=== PATIENT | male | born 1995 | race African-American/Black ===

== ENCOUNTER 2019-02-01 14:45 | Emergency (ER) | payer OTHER ==
[~2019-02-01] VITALS: Ht 182.9 cm; Wt 68.0 kg
[~2019-02-01 14:45] MED LIST: HYDR-3164 PO; PROM25TA10 PO
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
[2019-02-01 15:09] VITALS: BP 119/75
--- NOTE | 2019-02-01 15:42 | RAD ---
HAND RIGHT 3V History: Pain after an injury. No evidence of an acute fracture. No aggressive bone destruction. Joint spaces and alignment are intact. No significant soft tissue abnormality. IMPRESSION: No evidence of acute fracture or dislocation. Electronically signed by: Galen Boyle MD (02/01/2019 3:39 PM) [facility]
[2019-02-01] MEDS ORDERED: HYDR-3164 PO (15:55)
== END 2019-02-01 16:08 | disposition home or self-care (01) ==
LOC: ER 14:45
DX: S63.656A Sprain of metacarpophalangeal joint of right little finger, initial encounter (principal); S63.654A Sprain of metacarpophalangeal joint of right ring finger, initial encounter; S60.511A Abrasion of right hand, initial encounter; S10.91XA Abrasion of unspecified part of neck, initial encounter; S00.81XA Abrasion of other part of head, initial encounter; Z98.890 Other specified postprocedural states; Y08.89XA Assault by other specified means, initial encounter; Y93.89 Activity, other specified; Y92.89 Other specified places as the place of occurrence of the external cause; Y99.8 Other external cause status
CPT/HCPCS: 29125; 73130; 99284

== ENCOUNTER 2021-06-09 13:14 | Inpatient (IN) | payer SELFPAY ==
[~2021-06-09] VITALS: Ht 180.3 cm; Wt 67.8 kg
[2021-06-09 13:59] LABS: BASO # 0.1 x10^3/uL (0.0-0.2); BASO % 1 % (0-3); EOS # 0.1 x10^3/uL (0.0-0.7); EOS % 1 % (0-3); HEMATOCRIT 43.9 % (39.0-53.0); LYMPH # 1.1 x10^3/uL (1.0-4.8); LYMPH % 9 % (24-48); MEAN CORPUSCULAR HEMOGLOBIN 30 pg (25-35); MEAN CORPUSCULAR HGB CONC 34 g/dL (31-37); MEAN CORPUSCULAR VOLUME 89 fL (79-100); MONO # 0.9 x10^3/uL (0.0-1.1); MONO % 8 % (0-9); NEUT # 9.3 x10^3/uL (1.8-7.7); NEUT % 82 % (31-73); PLATELET COUNT 284 x10^3/uL (140-400); RED BLOOD COUNT 4.97 x10^6/uL (4.30-5.70); RED CELL DISTRIBUTION WIDTH 13.7 % (11.5-14.5); WHITE BLOOD COUNT 11.3 x10^3/uL (4.0-11.0)
[2021-06-09] MEDS ORDERED: ONDANSETRON PF 4 MG/2 ML VIAL. IVP ONE ×2 (14:00→15:15)
[2021-06-09] MEDS ORDERED: IV NORMAL SALINE 1000ML BAG 1,000 ML IV ONE ×2 (14:00→15:30)
[2021-06-09] MEDS ORDERED: MORPHINE SULFATE 4 MG/ML INJ. IVP ONE ×2 (14:00→15:15)
[2021-06-09 14:15] LABS: CALCIUM 9.7 mg/dL (8.5-10.1); CREATININE 1.2 mg/dL (0.7-1.3); GFR 89.3; POTASSIUM 3.8 mmol/L (3.5-5.1)
[2021-06-09 14:18] LABS: ALBUMIN 4.4 g/dL (3.4-5.0); TOTAL BILIRUBIN 1.1 mg/dL (0.2-1.0); TOTAL PROTEIN 8.6 g/dL (6.4-8.2)
[2021-06-09] MEDS ORDERED: CONTRAST GIVEN. MC PRN (14:30)
[2021-06-09] MEDS ORDERED: IOHEXOL 300 MG/ML 100ML VIAL. IV ONE (14:30)
--- NOTE | 2021-06-09 14:58 | RAD ---
Axial CT of the abdomen and pelvis were obtained after the administration of 75 cc Omnipaque 300. Ora l contrast was also administered. Coronal and sagittal reformats are also available. Indication: Right lower quadrant pain with rebound tenderness. Comparison: 12/27/2015. Findings: Lung bases are clear. The heart is unenlarged. Liver, gallbladder, spleen, adrenals kidneys are unremarkable in appearance. Pancreas is difficult to evaluate without oral contrast due to the patient's thin body habitus. The stomach, small and large bowel are nondistended. The appendix is dilated up to 12 mm. There is a small amount of periappendiceal fluid identified. Minimal inflammation is identified. No free air. Ab dominal aorta is nonaneurysmal. Portal, superior mesenteric and splenic veins are normal in appearanc e. Bony structures are unremarkable in appearance. Urinary bladder is nondistended. IMPRESSION: 1. Findings suggest early or mild appendicitis with dilation of the appendix and periappendiceal flui d without significant inflammation. Exposure: One or more of the following individualized dose reduction techniques were utilized for thi s examination: 1. Automated exposure control 2. Adjustment of the mA and/or kV according to patient size 3. Use of iterative reconstruction technique Electronically signed by: Santana Srivastava MD (06/09/2021 2:55 PM) [facility]
--- NOTE | 2021-06-09 15:12 | EKG ---
[facility] [address] [place] [address] Test Date: 2021-06-09 Test Time: 13:36:16 Pat Name: ROBBI BYRD Department: Room: Gender: M Associate Project Manager: : 1995 Requested By: MARITZA YOST Order Number: [id number] Reading MD: Jose Daniel Collins MD Measurements Intervals Metcalfe Rate: 65 P: 64 CT: 160 QRS: 14 QRSD: 100 T: 49 QT: 378 QTc: 394 Interpretive Statements SINUS RHYTHM Electronically Signed On 06-13-2021 9:04:22 CDT by Jose Daniel Collins MD
[2021-06-09] MEDS ORDERED: PIP/TAZO PER PHARMACY MC PRN (15:15)
[2021-06-09] MEDS: PIPERACILLIN/TAZOBACTAM 3.375 GM in IV NORMAL SALINE 50ML 50 ML IV SCH (15:25)
--- NOTE | 2021-06-09 15:28 | PHYS DOC ---
Past Medical History Past Medical History: No Pertinent History Past Surgical History: No Surgical History Additional Past Surgical Histo: LEFT ARM SURGERY Smoking Status: Current Every Day Smoker Alcohol Use: None Drug Use: None General Adult EDM: Chief Complaint: ABDOMINAL PAIN HPI: HPI: Patient is a 25-year-old male who presents to the emergency department complaining of a slow onset of intermittent right upper and lower abdominal pain that started approximately 22:30 yesterday while he was working at [employer]. Patient reports he was unable to sleep and noticed his pain became constant approximately 3 hours prior to arrival to the emergency department. Patient als o complains of intermittent waves of nausea and vomiting clear vomitus mixed with "bile ". Patient reports a 10 out of 10 pain at this time. Patient reports having a normal bowel movement this morning. Denies seeing blood in his vomitus or in his stool. Denies fever or chills. Denies chest pains. Patient denies abdominal surgical history. Does not take prescription medications at home. Does not have a primary care physician. Review of Systems: Review of Systems: 14 body systems of review of systems have been reviewed. See HPI for pertinent positives and negative responses, otherwise all other systems are negative, nonpertinent or noncontributory. Constitutional: Negative except as outlined in HPI above. Skin: Negative except as outlined in HPI above. Eyes: Negative except as outlined in HPI above. HENT: Negative except as outlined in HPI above. Respiratory: Negative except as outlined in HPI above. Cardiovascular: Negative except as outlined in HPI above. GI: Negative except as outlined in HPI above. : Negative except as outlined in HPI above. Musculoskeletal: Negative except as outlined in HPI above. Integument: Negative except as outlined in HPI above. Neurologic: Negative except as outlined in HPI above. Endocrine: Negative except as outlined in HPI above. Lymphatic: Negative except as outlined in HPI above. Psychiatric: Negative except as outlined in HPI above. Heart Score: C/O Chest Pain: No Risk Factors: Risk Factors: DM, Current or recent (<one month) smoker, HTN, HLP, family history of CAD, obesity. Risk Scores: Score 0 - 3: 2.5% MACE over next 6 weeks - Discharge Home Score 4 - 6: 20.3% MACE over next 6 weeks - Admit for Clinical Observation Score 7 - 10: 72.7% MACE over next 6 weeks - Early Invasive Strategies Current Medications: Current Medications Medications (Trade) Dose Ordered Sig/Irais Start Time Stop Time Status Last Admin Dose Admin Info (CONTRAST GIVEN -- Rx MONITORING) 1 each PRN DAILY PRN 06/09/21 14:30 06/11/21 14:29 Iohexol (Omnipaque 300 Mg/ml) 75 ml 1X ONCE 06/09/21 14:30 06/09/21 14:31 DC 06/09/21 14:34 75 ML Morphine Sulfate (Morphine Sulfate) 4 mg 1X ONCE 06/09/21 14:00 06/09/21 14:01 DC 06/09/21 14:07 4 MG Ondansetron HCl (Zofran) 4 mg 1X ONCE 06/09/21 14:00 06/09/21 14:01 DC 06/09/21 14:06 4 MG Sodium Chloride 1,000 ml @ 1,000 mls/hr 1X ONCE 06/09/21 14:00 06/09/21 14:59 DC 06/09/21 14:05 1,000 MLS/HR Allergies: Allergies: Allergies Coded Allergies Type Severity Reaction Last Updated Verified No Known Drug Allergies 12/27/15 No Physical Exam: PE: C constitutional: Well developed, well nourished, nontoxic in appearance, lying in left lateral recumbent position guarding abdomen. HENT: Normocephalic, atraumatic. Eyes: Conjunctiva normal, no discharge. Neck: Normal range of motion, no stridor. Cardiovascular: No cyanosis appreciated, distal cap refill less than 2 seconds. Lungs & Thorax: Patient is in no respiratory distress, no audible adventitious lung sounds appreciated. Abdomen: Abdomen is flat, no skin discoloration appreciated, hypersensitivity to light palpation to right upper and right lower quadrant, positive McBurney's point tenderness, there is rebound tenderness appreciated, negative Trinidad sign. Skin: Warm, dry, no erythema, no rash. Back: No tenderness, no deformities. Extremities: No tenderness, no cyanosis, no clubbing, ROM intact, no edema. Neurologic: Alert and oriented X 3, normal motor function, normal sensory function, no focal deficits noted. Psychologic: Affect normal, judgement normal, mood normal. Current Patient Data: Labs: Laboratory Tests Test 06/09/21 13:28 06/09/21 14:04 White Blood Count 11.3 x10^3/uL (4.0-11.0) H Red Blood Count 4.97 x10^6/uL (4.30-5.70) Hemoglobin 15.0 g/dL (13.0-17.5) Hematocrit 43.9 % (39.0-53.0) Mean Corpuscular Volume 89 fL (79-100) Mean Corpuscular Hemoglobin 30 pg (25-35) Mean Corpuscular Hemoglobin Concent 34 g/dL (31-37) Red Cell Distribution Width 13.7 % (11.5-14.5) Platelet Count 284 x10^3/uL (140-400) Neutrophils (%) (Auto) 82 % (31-73) H Lymphocytes (%) (Auto) 9 % (24-48) L Monocytes (%) (Auto) 8 % (0-9) Eosinophils (%) (Auto) 1 % (0-3) Basophils (%) (Auto) 1 % (0-3) Neutrophils # (Auto) 9.3 x10^3/uL (1.8-7.7) H Lymphocytes # (Auto) 1.1 x10^3/uL (1.0-4.8) Monocytes # (Auto) 0.9 x10^3/uL (0.0-1.1) Eosinophils # (Auto) 0.1 x10^3/uL (0.0-0.7) Basophils # (Auto) 0.1 x10^3/uL (0.0-0.2) Sodium Level 138 mmol/L (136-145) Potassium Level 3.8 mmol/L (3.5-5.1) Chloride Level 102 mmol/L (98-107) Carbon Dioxide Level 29 mmol/L (21-32) Anion Gap 7 (6-14) Blood Urea Nitrogen 10 mg/dL (8-26) Creatinine 1.2 mg/dL (0.7-1.3) Estimated GFR (Cockcroft-Gault) 89.3 BUN/Creatinine Ratio 8 (6-20) Glucose Level 86 mg/dL (70-99) Calcium Level 9.7 mg/dL (8.5-10.1) Total Bilirubin 1.1 mg/dL (0.2-1.0) H Aspartate Amino Transferase (AST) 16 U/L (15-37) Alanine Aminotransferase (ALT) 20 U/L (16-63) Alkaline Phosphatase 67 U/L (46-116) Troponin I High Sensitivity 5 ng/L (4-75) Total Protein 8.6 g/dL (6.4-8.2) H Albumin 4.4 g/dL (3.4-5.0) Albumin/Globulin Ratio 1.0 (1.0-1.7) Lipase 251 U/L (73-393) Lactic Acid Level 1.4 mmol/L (0.4-2.0) Laboratory Tests 06/09/21 13:28 Laboratory Tests 06/09/21 13:28 Vital Signs: Vital Signs Date Time Temp Pulse Resp B/P (MAP) Pulse Ox O2 Delivery O2 Flow Rate FiO2 06/09/21 14:07 20 100 Room Air 06/09/21 13:15 97.9 71 115/76 (89) 97.9 EKG: EKG: EKG performed at 1336 by ED nursing staff shows a normal sinus rhythm without other ectopy, her rate is 65 bpm, NE interval point 160, QTc interval 0.394, no acute STEMI, no ACS, no acute ischemia appreciated, it was noted by ED attending physician during interpretation and elevation in V2 and V3, most likely early repolarization. Radiology/Procedures: Radiology/Procedures: REASON: Right upper and lower quadrant pain with rebound tenderness PROCEDURE: CT ABD PELV W/ IV CONTRST ONLY Axial CT of the abdomen and pelvis were obtained after the administration of 75 cc Omnipaque 300. Oral contrast was also administered. Coronal and sagittal reformats are also available. Indication: Right lower quadrant pain with rebound tenderness. Comparison: 12/27/2015. Findings: Lung bases are clear. The heart is unenlarged. Liver, gallbladder, spleen, adrenals kidneys are unremarkable in appearance. Pancreas is difficult to evaluate without oral contrast due to the patient's thin body habitus. The stomach, small and large bowel are nondistended. The appendix is dilated up to 12 mm. There is a small amount of periappendiceal fluid identified. Minimal inflammation is identified. No free air. Abdominal aorta is nonaneurysmal. Portal, superior mesenteric and splenic veins are normal in appearance. Bony structures are unremarkable in appearance. Urinary bladder is nondistended. IMPRESSION: 1. Findings suggest early or mild appendicitis with dilation of the appendix and periappendiceal fluid without significant inflammation. Exposure: One or more of the following individualized dose reduction techniques were utilized for this examination: 1. Automated exposure control 2. Adjustment of the mA and/or kV according to patient size 3. Use of iterative reconstruction technique Electronically signed by: Santana Srivastava MD (06/09/2021 2:55 PM) [facility] Course & Med Decision Making: Course & Med Decision Making Pertinent Labs and Imaging studies reviewed. (See chart for details) 25-year-old male, vital signs reviewed, presents to the emergency department concerning right upper and lower abdominal pain since yesterday. Patient's physical examination is concerning for appendicitis versus other acute abdominal process. Will order CBC, CMP, lactic acid, lipase, troponin I high-sensitivity, urinalysis assay, EKG twelve-lead, 1 L normal saline bolus, 4 mg morphine, [address] abdomen pelvis with IV contrast. Patient last consumed food yesterday evening approximately 1900, last consumed p.o. fluids water 8 hours prior to arrival to the emergency department. CBC with slightly elevated neutrophilia of 11.3. The CMP is unremarkable. Patient has not given a urine specimen at this time. CT abdomen pelvis concerning for acute appendicitis. Paged to Dr. Lozada general surgeon. Called and discussed patient case and ED work-up with general surgeon Dr. Lozada who agrees patient's case warrants surgical intervention, requested IV Zosyn regimen, admit to inpatient management physician Dr. Waterman, will place on OR schedule at 730 tomorrow morning. Called and discussed patient case and ED work-up with inpatient management physician Dr. Waterman who is agrees to accept admission to [facility] unit. 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 Zosyn regimen per pharmacy ordered. Dragon Disclaimer: Dragon Disclaimer: This electronic medical record was generated, in whole or in part, using a voice recognition dictation system. Departure Departure Impression: Primary Impression: Acute appendicitis Qualified Codes: K35.80 - Unspecified acute appendicitis Additional Impression: Abdominal pain Qualified Codes: R10.31 - Right lower quadrant pain Disposition: ADMITTED INPATIENT Admitting Physician: HIMS (Admit to Dr. HarbesonDr. Neville mccormick surgical consult, to [facility] unit) Condition: GUARDED Referrals: NO PCP (PCP) MARITZA YOST APRN June 09, 2021 15:28
[2021-06-09] MEDS ORDERED: ONDANSETRON PF 4 MG/2 ML VIAL. IVP PRN (15:30)
[2021-06-09 15:52] LABS: INFLUENZA A PATIENT NEGATIVE (NEGATIVE); INFLUENZA B PATIENT NEGATIVE (NEGATIVE)
[2021-06-09] MEDS: MORPHINE SULFATE 4 MG/ML INJ. IVP PRN ×2 (17:23→21:23)
[2021-06-09 17:28] LABS: BILIRUBIN,URINE NEGATIVE (NEG); CLARITY,URINE CLEAR; COLOR,URINE YELLOW; NITRITE,URINE NEGATIVE (NEG); PROTEIN,URINE NEGATIVE (NEG-TRACE); UROBILINOGEN,URINE 0.2 mg/dL (0.2 mg/dL)
[2021-06-09 17:29] LABS: BACTERIA,URINE 0 /HPF (0-FEW); RBC,URINE 0 /HPF (0-2); WBC,URINE OCC /HPF (0-4)
--- NOTE | 2021-06-09 18:39 | HP ---
DATE OF SERVICE: 06/09/2021 ADMIT DATE: 06/09/2021 CHIEF COMPLAINT: Abdominal pain. HISTORY OF PRESENT ILLNESS: The patient is a healthy 25-year-old male who presented to the ER with abdominal pain. We did a CAT scan, he has got appendicitis. I discussed the case with ER physician. The patient has been admitted. We are consulting General Surgery. He is going to surgery in the morning. PAST MEDICAL HISTORY: Left arm surgery, tobacco abuse. ALLERGIES: None. FAMILY HISTORY: Diabetes. SOCIAL HISTORY: He does smoke. No drink or drugs. MEDICATIONS: Reviewed, please refer to the MRAD. REVIEW OF SYSTEMS: GENERAL: No history of weight change, weakness or fevers. SKIN: No bruising, hair changes or rashes. EYES: No blurred, double or loss of vision. NOSE AND THROAT: No history of nosebleeds, hoarseness or sore throat. HEART: No history of palpitations, chest pain or shortness of breath on exertion. LUNGS: Denies cough, hemoptysis, wheezing or shortness of breath. GASTROINTESTINAL: He complains of abdominal pain. GENITOURINARY: No history of frequency, urgency, hesitancy or nocturia. NEUROLOGIC: Denies history of numbness, tingling, tremor or weakness. PSYCHIATRIC: No history of panic, anxiety or depression. ENDOCRINE: No history of heat or cold intolerance, polyuria or polydipsia. EXTREMITIES: Denies muscle weakness, joint pain, pain on walking or stiffness. PHYSICAL EXAMINATION: VITALS: Within normal limits and are stable. GENERAL: No apparent distress. Alert and oriented. HEENT: Normal cephalic atraumatic, external auditory canals are patent. EYES: Extraocular muscles are intact, pupils are equally round and reactive to light and accommodation. MUSCULOSKELETAL: Well developed, well nourished, good range of motion. ENDOCRINE: No thyromegaly was palpated. LYMPHATICS: No cervical chain or axillary nodes were noted. HEMATOPOIETIC: No bruising. NECK: Supple, no JVD, no thyromegaly was noted. LUNGS: Clear to auscultation in all lung hwang without rhonchi or wheezing. HEART: RRR, S1, S2 present. Peripheral pulses intact, no obvious murmurs were noted. ABDOMEN: He has decreased bowel sounds with tenderness. EXTREMITIES: Without any cyanosis, clubbing, or edema. Pedal pulses intact, Homans sign is negative. NEUROLOGIC: Normal speech, normal tone. A and O x 3, moves all extremities, no obvious focal deficits. PSYCHIATRIC: Normal affect, normal mood. Stable. SKIN: No ulcerations or rashes, good skin turgor, no jaundice. VASCULAR: Good capillary refill, neurovascular bundle appears to be intact. LABORATORY DATA: White count 11. Electrolytes are normal. CT of the abdomen shows appendicitis. ASSESSMENT AND PLAN: Appendicitis. The patient will be admitted. We will start IV antibiotics, IV fluids, p.r.n. Zofran, p.r.n. morphine, home meds. DVT prophylaxis. Full code. Consult General Surgery. He is going to surgery in the morning. BARRY/ADILIA DR: BARRY/lauro TID: [id number]
[2021-06-09 19:45] VITALS: BP 86/65
[2021-06-09] MEDS ORDERED: NICOTINE 21MG PATCH. TD PRN (20:15)
[2021-06-09 23:27] VITALS: BP 100/39
[2021-06-10] VITALS (8 sets, daily range): BP systolic 92–109; BP diastolic 52–72
[2021-06-10] MEDS: PIPERACILLIN/TAZOBACTAM 3.375 GM in IV NORMAL SALINE 50ML 50 ML IV SCH ×2 (00:53→05:47)
[2021-06-10] MEDS ORDERED: IV RINGERS,LACTATED 1000ML 1,000 ML IV SCH (06:00)
[2021-06-10] MEDS ORDERED: fentaNYL PF VIAL 100 MCG/2 ML VIAL IVP PRN ×2 (06:00)
[2021-06-10] MEDS ORDERED: HYDROmorphone 2 MG/ML INJ. IVP PRN (06:00)
[2021-06-10] MEDS ORDERED: PROCHLORPERAZINE 10 MG/2 ML VIAL. IVP PRN (06:00)
[2021-06-10] MEDS ORDERED: BUPIVACAINE-EPI 0.25%-1:200000 MPF 30 ML VIAL. ONE (07:06)
--- NOTE | 2021-06-10 07:15 | PDOC2 ---
CONSULT Date of Consult Date of Consult DATE: 06/10/21 TIME: 07:11 Reason for Consult Reason for Consult: Abdominal pain Referring Physician Referring Physician: Guevara Identification/Chief Complaint Chief Complaint Abd pain Source Source: Chart review, Patient History of Present Illness Reason for Visit: 25 yo male with RLQ abd pain for [address] shows signs of acute appendicitis Past Medical History Cardiovascular: No pertinent hx Pulmonary: No pertinent hx GI: No pertinent hx Heme/Onc: No pertinent hx Psych: No pertinent hx Rheumatologic: No pertinent hx ENT: No pertinent hx Renal/: No pertinent hx Endocrine: No pertinent hx Dermatology: No pertinent hx Past Surgical History Past Surgical History: No pertinent history Family History Family History: No Significant Social History No ALCOHOL: rare Drugs: None Current Problem List Problem List Problems Medical Problems: (1) Abdominal pain Status: Acute (2) Acute appendicitis Status: Acute Current Medications Current Medications Current Medications Sodium Chloride 1,000 ml @ 1,000 mls/hr 1X ONCE IV Last administered on 06/09/21at 14:05; Start 06/09/21 at 14:00; Stop 06/09/21 at 14:59; Status DC Ondansetron HCl (Zofran) 4 mg 1X ONCE IVP Last administered on 06/09/21at 14:06; Start 06/09/21 at 14:00; Stop 06/09/21 at 14:01; Status DC Morphine Sulfate (Morphine Sulfate) 4 mg 1X ONCE IVP Last administered on 06/09/21at 14:07; Start 06/09/21 at 14:00; Stop 06/09/21 at 14:01; Status DC Iohexol (Omnipaque 300 Mg/ml) 75 ml 1X ONCE IV Last administered on 06/09/21at 14:34; Start 06/09/21 at 14:30; Stop 06/09/21 at 14:31; Status DC Info (CONTRAST GIVEN -- Rx MONITORING) 1 each PRN DAILY PRN MC SEE COMMENTS; Start 06/09/21 at 14:30; Stop 06/11/21 at 14:29 Morphine Sulfate (Morphine Sulfate) 4 mg 1X ONCE IVP Last administered on 06/09/21at 15:11; Start 06/09/21 at 15:15; Stop 06/09/21 at 15:16; Status DC Ondansetron HCl (Zofran) 4 mg 1X ONCE IVP Last administered on 06/09/21at 15:11; Start 06/09/21 at 15:15; Stop 06/09/21 at 15:16; Status DC Piperacillin Sod/ Tazobactam Sod (Zosyn Per Pharmacy) 1 each PRN DAILY PRN MC SEE COMMENTS; Start 06/09/21 at 15:15 Piperacillin Sod/ Tazobactam Sod 3.375 gm/Sodium Chloride 50 ml @ 100 mls/hr Q6HRS IV Last administered on 06/10/21at 05:47; Start 06/09/21 at 16:00 Ondansetron HCl (Zofran) 4 mg PRN Q8HRS PRN IVP NAUSEA/VOMITING; Start 06/09/21 at 15:30; Stop 06/10/21 at 15:29 Morphine Sulfate (Morphine Sulfate) 4 mg PRN Q2HR PRN IVP PAIN Last administered on 06/09/21at 21:23; Start 06/09/21 at 15:30; Stop 06/10/21 at 15:29 Sodium Chloride 1,000 ml @ 75 mls/hr 1X ONCE IV Last administered on 06/09/21at 15:26; Start 06/09/21 at 15:30; Stop 06/10/21 at 04:49; Status DC Fentanyl Citrate (Fentanyl 2ml Vial) 25 mcg PRN Q5MIN PRN IVP MILD PAIN 1-3; Start 06/10/21 at 06:00; Stop 06/11/21 at 05:59 Fentanyl Citrate (Fentanyl 2ml Vial) 50 mcg PRN Q5MIN PRN IVP MODERATE PAIN 4- 6; Start 06/10/21 at 06:00; Stop 06/11/21 at 05:59 Morphine Sulfate (Morphine Sulfate) 1 mg PRN Q10MIN PRN IVP SEVERE PAIN 7-10; Start 06/10/21 at 06:00; Stop 06/11/21 at 05:59 Ringer's Solution 1,000 ml @ 30 mls/hr Q24H IV ; Start 06/10/21 at 06:00; Stop 06/10/21 at 17:59 Hydromorphone HCl (Dilaudid) 0.5 mg PRN Q10MIN PRN IVP SEVERE PAIN 7-10, 2nd CHOICE; Start 06/10/21 at 06:00; Stop 06/11/21 at 05:59 Prochlorperazine Edisylate (Compazine) 5 mg PACU PRN PRN IVP NAUSEA, MRX1; Start 06/10/21 at 06:00; Stop 06/11/21 at 05:59 Nicotine (Nicoderm Cq 21mg) 1 patch PRN DAILY PRN TD SMOKING CESSATION Last administered on 06/09/21at 20:27; Start 06/09/21 at 20:15 Active Scripts Active Allergies Allergies: Coded Allergies: No Known Drug Allergies (Unverified , 12/27/15) ROS General: No: Chills, Night Sweats, Fatigue, Malaise, Appetite, Other PSYCHOLOGICAL ROS: No: Anxiety, Behavioral Disorder, Concentration difficultie, Decreased libido, Depression, Disorientation, Hallucinations, Hostility, Irritablity, Memory difficulties, Mood Swings, Obsessive thoughts, Physical abu se, Sexual abuse, Sleep disturbances, Suicidal ideation, Other Eyes: No Blurry vision, No Decreased vision, No Double vision, No Dry eyes, No Excessive tearing, No Eye Pain, No Itchy Eyes, No Loss of vision, No Photophobia, No Scotomata, No Uses contacts, No Uses glasses, No Other HEENT: No: Heacaches, Visual Changes, Hearing change, Nasal congestion, Nasal discharge, Oral lesions, Sinus pain, Sore Throat, Epistaxis, Sneezing, Snoring, Tinnitus, Vertigo, Vocal changes, Other ALLERGY AND IMMUNOLOGY: No: Hives, Insect Bite Sensitivity, Itchy/Watery Eyes, Nasal Congestion, Post Nasal Drip, Seasonal Allergies, Other Hematological and Lymphatic: No: Bleeding Problems, Blood Clots, Blood Transfusions, Brusing, Night Sweats, Pallor, Swollen Lymph Nodes, Other ENDOCRINE: No: Breast Changes, Galactorrhea, Hair Pattern Changes, Hot Flashes, Malaise/lethargy, Mood Swings, Palpitations, Polydipsia/polyuria, Skin Changes, Temperature Intolerance, Unexpected Weight Changes, Other Respiratory: No: Cough, Hemoptysis, Orthopnea, Pleuritic Pain, Shortness of breath, SOB with excertion, Sputum Changes, Stridor, Tachypnea, Wheezing, Other Cardiovascular: No Chest Pain, No Palpitations, No Orthopnea, No Paroxysmal Noc. Dyspnea, No Edema, No Lt Headedness, No Other Gastrointestinal: Yes Nausea, Yes Vomiting, Yes Abdominal Pain Genitourinary: No Dysuria, No Frequency, No Incontinence, No Hematuria, No Retention, No Discharge, No Urgency, No Pain, No Flank Pain, No Other, No , No , No , No , No , No , No Musculoskeletal: No Gait Disturbance, No Joint Pain, No Joint Stiffness, No Joint Swelling, No Muscle Pain, No Muscular Weakness, No Pain In:, No Swelling In:, No Other Neurological: No Behavorial Changes, No Bowel/Bladder ControlChng, No Confusion, No Dizziness, No Gait Disturbance, No Headaches, No Impaired Coord/balance, No Memory Loss, No Numbness/Tingling, No Seizures, No Speech Problems, No Tremors, No Visual Changes, No Weakness, No Other Skin: No Dry Skin, No Eczema, No Hair Changes, No Lumps, No Mole Changes, No Mottling, No Nail Changes, No Pruritus, No Rash, No Skin Lesion Changes, No Other, No Acne Physical Exam General: Alert, Oriented X3, Cooperative, mild distress HEENT: Atraumatic, PERRLA, EOMI Lungs: Clear to auscultation, Normal air movement Heart: Regular rate, No murmurs Abdomen: Normal bowel sounds, Soft, Other (TTP RLQ) Extremities: No edema Skin: No significant lesion Neuro: Normal speech Psych/Mental Status: Mental status NL Vitals VITALS Vital Signs Date Time Temp Pulse Resp B/P (MAP) Pulse Ox O2 Delivery O2 Flow Rate FiO2 06/10/21 07:04 99.4 59 13 103/55 100 Room Air 99.4 Labs Labs Laboratory Tests Test 06/09/21 13:28 06/09/21 14:04 06/09/21 15:30 06/09/21 17:20 White Blood Count 11.3 x10^3/uL (4.0-11.0) Red Blood Count 4.97 x10^6/uL (4.30-5.70) Hemoglobin 15.0 g/dL (13.0-17.5) Hematocrit 43.9 % (39.0-53.0) Mean Corpuscular Volume 89 fL (79-100) Mean Corpuscular Hemoglobin 30 pg (25-35) Mean Corpuscular Hemoglobin Concent 34 g/dL (31-37) Red Cell Distribution Width 13.7 % (11.5-14.5) Platelet Count 284 x10^3/uL (140-400) Neutrophils (%) (Auto) 82 % (31-73) Lymphocytes (%) (Auto) 9 % (24-48) Monocytes (%) (Auto) 8 % (0-9) Eosinophils (%) (Auto) 1 % (0-3) Basophils (%) (Auto) 1 % (0-3) Neutrophils # (Auto) 9.3 x10^3/uL (1.8-7.7) Lymphocytes # (Auto) 1.1 x10^3/uL (1.0-4.8) Monocytes # (Auto) 0.9 x10^3/uL (0.0-1.1) Eosinophils # (Auto) 0.1 x10^3/uL (0.0-0.7) Basophils # (Auto) 0.1 x10^3/uL (0.0-0.2) Sodium Level 138 mmol/L (136-145) Potassium Level 3.8 mmol/L (3.5-5.1) Chloride Level 102 mmol/L (98-107) Carbon Dioxide Level 29 mmol/L (21-32) Anion Gap 7 (6-14) Blood Urea Nitrogen 10 mg/dL (8-26) Creatinine 1.2 mg/dL (0.7-1.3) Estimated GFR (Cockcroft-Gault) 89.3 BUN/Creatinine Ratio 8 (6-20) Glucose Level 86 mg/dL (70-99) Calcium Level 9.7 mg/dL (8.5-10.1) Total Bilirubin 1.1 mg/dL (0.2-1.0) Aspartate Amino Transf (AST/SGOT) 16 U/L (15-37) Alanine Aminotransferase (ALT/SGPT) 20 U/L (16-63) Alkaline Phosphatase 67 U/L (46-116) Troponin I High Sensitivity 5 ng/L (4-75) Total Protein 8.6 g/dL (6.4-8.2) Albumin 4.4 g/dL (3.4-5.0) Albumin/Globulin Ratio 1.0 (1.0-1.7) Lipase 251 U/L (73-393) Lactic Acid Level 1.4 mmol/L (0.4-2.0) Influenza Type A Antigen Negative (NEGATIVE) Influenza Type B Antigen Negative (NEGATIVE) SARS-CoV-2 Antigen (Rapid) Negative (NEGATIVE) Urine Collection Type Unknown Urine Color Yellow Urine Clarity Clear Urine pH 7.0 Urine Specific [place] 1.010 Urine Protein Negative mg/dL (NEG-TRACE) Urine Glucose (UA) Negative mg/dL (NEG) Urine Ketones (Stick) 40 mg/dL (NEG) Urine Blood Negative (NEG) Urine Nitrite Negative (NEG) Urine Bilirubin Negative (NEG) Urine Urobilinogen Dipstick 0.2 mg/dL (0.2 mg/dL) Urine Leukocyte Esterase Negative (NEG) Urine RBC 0 /HPF (0-2) Urine WBC Occ /HPF (0-4) Urine Squamous Epithelial Cells /LPF Urine Bacteria 0 /HPF (0-FEW) Urine Mucus Slight /LPF Laboratory Tests Test 06/09/21 13:28 06/09/21 14:04 06/09/21 15:30 06/09/21 17:20 White Blood Count 11.3 x10^3/uL (4.0-11.0) Red Blood Count 4.97 x10^6/uL (4.30-5.70) Hemoglobin 15.0 g/dL (13.0-17.5) Hematocrit 43.9 % (39.0-53.0) Mean Corpuscular Volume 89 fL (79-100) Mean Corpuscular Hemoglobin 30 pg (25-35) Mean Corpuscular Hemoglobin Concent 34 g/dL (31-37) Red Cell Distribution Width 13.7 % (11.5-14.5) Platelet Count 284 x10^3/uL (140-400) Neutrophils (%) (Auto) 82 % (31-73) Lymphocytes (%) (Auto) 9 % (24-48) Monocytes (%) (Auto) 8 % (0-9) Eosinophils (%) (Auto) 1 % (0-3) Basophils (%) (Auto) 1 % (0-3) Neutrophils # (Auto) 9.3 x10^3/uL (1.8-7.7) Lymphocytes # (Auto) 1.1 x10^3/uL (1.0-4.8) Monocytes # (Auto) 0.9 x10^3/uL (0.0-1.1) Eosinophils # (Auto) 0.1 x10^3/uL (0.0-0.7) Basophils # (Auto) 0.1 x10^3/uL (0.0-0.2) Sodium Level 138 mmol/L (136-145) Potassium Level 3.8 mmol/L (3.5-5.1) Chloride Level 102 mmol/L (98-107) Carbon Dioxide Level 29 mmol/L (21-32) Anion Gap 7 (6-14) Blood Urea Nitrogen 10 mg/dL (8-26) Creatinine 1.2 mg/dL (0.7-1.3) Estimated GFR (Cockcroft-Gault) 89.3 BUN/Creatinine Ratio 8 (6-20) Glucose Level 86 mg/dL (70-99) Calcium Level 9.7 mg/dL (8.5-10.1) Total Bilirubin 1.1 mg/dL (0.2-1.0) Aspartate Amino Transf (AST/SGOT) 16 U/L (15-37) Alanine Aminotransferase (ALT/SGPT) 20 U/L (16-63) Alkaline Phosphatase 67 U/L (46-116) Troponin I High Sensitivity 5 ng/L (4-75) Total Protein 8.6 g/dL (6.4-8.2) Albumin 4.4 g/dL (3.4-5.0) Albumin/Globulin Ratio 1.0 (1.0-1.7) Lipase 251 U/L (73-393) Lactic Acid Level 1.4 mmol/L (0.4-2.0) Influenza Type A Antigen Negative (NEGATIVE) Influenza Type B Antigen Negative (NEGATIVE) SARS-CoV-2 Antigen (Rapid) Negative (NEGATIVE) Urine Collection Type Unknown Urine Color Yellow Urine Clarity Clear Urine pH 7.0 Urine Specific [place] 1.010 Urine Protein Negative mg/dL (NEG-TRACE) Urine Glucose (UA) Negative mg/dL (NEG) Urine Ketones (Stick) 40 mg/dL (NEG) Urine Blood Negative (NEG) Urine Nitrite Negative (NEG) Urine Bilirubin Negative (NEG) Urine Urobilinogen Dipstick 0.2 mg/dL (0.2 mg/dL) Urine Leukocyte Esterase Negative (NEG) Urine RBC 0 /HPF (0-2) Urine WBC Occ /HPF (0-4) Urine Squamous Epithelial Cells /LPF Urine Bacteria 0 /HPF (0-FEW) Urine Mucus Slight /LPF Assessment/Plan Assessment/Plan Acute appendicitis plan L/S appendectomy JIMMY COLVIN MD June 10, 2021 07:15
[2021-06-10] MEDS ORDERED: ROCURONIUM 50 MG/5 ML VIAL. ONE (07:19)
--- NOTE | 2021-06-10 07:20 | NUR ---
Pt off the unit before change of shift. Pt in surgery.
[2021-06-10] MEDS ORDERED: fentaNYL PF VIAL 100 MCG/2 ML VIAL ONE ×2 (07:21→07:40)
[2021-06-10] MEDS ORDERED: ePHEDrine PF IN SALINE 50 MG/10 ML SYRINGE. IV ONE (07:30)
[2021-06-10] MEDS ORDERED: KETOROLAC 30 MG/ML VIAL. ONE (07:30)
[2021-06-10] MEDS ORDERED: FAMOTIDINE 20 MG/2 ML VIAL ONE (07:31)
[2021-06-10] MEDS ORDERED: LIDOCAINE 2% PF 5 ML VIAL. ONE (07:31)
[2021-06-10] MEDS ORDERED: ONDANSETRON PF 4 MG/2 ML VIAL. ONE (07:31)
[2021-06-10] MEDS ORDERED: DEXAMETHASONE SOD PHOS 4 MG/ML VIAL ONE (07:31)
[2021-06-10] MEDS ORDERED: PROPOFOL 10 MG/ML (20ML) VIAL. IV ONE (07:31)
[2021-06-10] MEDS ORDERED: GLYCOPYRROLATE 1 MG/5 ML VIAL. ONE ×2 (07:33→09:03)
[2021-06-10] MEDS ORDERED: NEOSTIGMINE METHYLSULFATE 5 MG/5 ML SYRINGE. ONE (07:33)
[2021-06-10] MEDS ORDERED: BUPIVACAINE-EPI 0.25%-1:200000 MPF 30 ML VIAL. INJ ONE (07:36)
[2021-06-10] MEDS ORDERED: SEVOFLURANE 61 TO 120 MINUTES. IH ONE (07:39)
[2021-06-10] MEDS ORDERED: SEVOFLURANE 31 TO 60 MINUTES. IH ONE (07:59)
--- NOTE | 2021-06-10 08:07 | PDOC4 ---
Operative Note Operative Note Date: June 10, 2021 at 8:05 AM Preoperative diagnosis: Acute appendicitis Postoperative diagnosis: Same Procedure: Laparoscopic appendectomy Surgeon: Neville Specimen: Appendix Dictation: Patient is 25-year-old male was mated to the hospital right lower quadrant abdominal pain a CT scan showing signs consistent with acute a ppendicitis. Procedure laparoscopic appendectomy was explained to the patient detail all risk benefits were also discussed including bleeding infection injury to intra-abdominal contents possible necessitating further open operations alternatives to this procedure also discussed with the patient who seemed to understand and gave a verbal written consent had procedure performed. Patient was taken to the operating room placed in supine position general anesthesia was initiated once patient was sleeping intubated his abdomen was prepped and draped usual sterile fashion using ChloraPrep. Area just above his umbilicus was injected with quarter percent Marcaine with epinephrine incision was made 11 blade scalpel and a varies needle was placed within the abdomen creating pneumoperitoneum once this was complete 12 mm port was placed and a 5 mm camera was placed within the abdomen which was inspected no other abnormalities were noted other than edematous appendix. 5 mm ports placed low in the midline and a 5 mm port was placed in the right midabdomen all under direct visualization. The appendix was grasped retracted towards the anterior abdominal wall a window was propagated the base of the appendix through the mesoappendix with a [place] dissector Endo DELMIS stapler was then used to staple and transect the base of the appendix a second load was used to staple and transect the mesoappendix. Appendix then placed in Endo Catch bag removed from the umbilicus right lower quadrant was irrigated and suctioned dry hemostasis deemed to appropriate the pneumoperitoneum was reduced all ports were removed the fascial defect at the umbilicus was closed with a [id number] 0 Vicryl suture and the skin was reapproximated all port sites for subcuticular Monocryl Mastisol Steri-Strips and island dressings were applied. Patient was awakened and extubated in the operating room taken to recovery in stable condition all sponge instrument needle counts listed as correct estimated blood loss 20 mL JIMMY COLVIN MD June 10, 2021 08:07
[2021-06-10] MEDS ORDERED: oxyCODONE/APAP 5/325 1 TAB TABLET PO PRN ×2 (08:15)
[2021-06-10] MEDS ORDERED: MORPHINE SULFATE 2 MG/ML INJ. ONE (08:36)
[2021-06-10] MEDS: MORPHINE SULFATE 2 MG/ML INJ. IVP PRN ×2 (08:41→08:55)
[2021-06-10] MEDS ORDERED: PROCHLORPERAZINE 10 MG/2 ML VIAL. ONE (08:51)
[2021-06-10] MEDS ORDERED: HYDROmorphone 2 MG/ML INJ. ONE (09:11)
--- NOTE | 2021-06-10 09:30 | NUR ---
Pt returned to unit by bed. Awakens easily but sedated. Abd 3 lap sites d/i. IVF's intact and infusing. Side rails up x's 2 with call light in reach. Mother at bedside. Cont. monitor.
--- NOTE | 2021-06-10 09:54 | PDOC ---
[employer] PROGRESS NOTE Date of Service DOS: DATE: 06/10/21 TIME: 09:52 Chief Complaint Chief Complaint Acute Appendicitis. -Patient underwent successful appendectomy no complications -As needed pain control -Advance diet as tolerated -Okay to stop antibiotics -Possible discharge this evening or tomorrow History of Present Illness History of Present Illness 06/10 Patient evaluated examined at bedside. He had just gotten up from the floor from surgery was pretty lethargic still. Was able to tell me pain controlled. Advancing diet as tolerated. Possible discharge this evening or tomorrow morning. Vitals/I&O Vitals/I&O: Vital Signs Date Time Temp Pulse Resp B/P (MAP) Pulse Ox O2 Delivery O2 Flow Rate FiO2 06/10/21 09:11 56 13 98/59 99 Room Air 06/10/21 08:26 10.0 06/10/21 08:11 97.8 97.8 I & O 06/09/21 06/09/21 06/10/21 15:00 23:00 07:00 Intake Total 1050 ml 50 ml Balance 1050 ml 50 ml Physical Exam General: Alert, Oriented X3, Cooperative, mild distress Heart: Regular rate, No murmurs Lungs: Clear Abdomen: Normal bowel sounds, Soft, Other (TTP RLQ) Extremities: No edema Skin: No significant lesion Labs Labs: Laboratory Tests Test 06/09/21 13:28 06/09/21 14:04 06/09/21 15:30 06/09/21 17:20 White Blood Count 11.3 x10^3/uL (4.0-11.0) Red Blood Count 4.97 x10^6/uL (4.30-5.70) Hemoglobin 15.0 g/dL (13.0-17.5) Hematocrit 43.9 % (39.0-53.0) Mean Corpuscular Volume 89 fL (79-100) Mean Corpuscular Hemoglobin 30 pg (25-35) Mean Corpuscular Hemoglobin Concent 34 g/dL (31-37) Red Cell Distribution Width 13.7 % (11.5-14.5) Platelet Count 284 x10^3/uL (140-400) Neutrophils (%) (Auto) 82 % (31-73) Lymphocytes (%) (Auto) 9 % (24-48) Monocytes (%) (Auto) 8 % (0-9) Eosinophils (%) (Auto) 1 % (0-3) Basophils (%) (Auto) 1 % (0-3) Neutrophils # (Auto) 9.3 x10^3/uL (1.8-7.7) Lymphocytes # (Auto) 1.1 x10^3/uL (1.0-4.8) Monocytes # (Auto) 0.9 x10^3/uL (0.0-1.1) Eosinophils # (Auto) 0.1 x10^3/uL (0.0-0.7) Basophils # (Auto) 0.1 x10^3/uL (0.0-0.2) Sodium Level 138 mmol/L (136-145) Potassium Level 3.8 mmol/L (3.5-5.1) Chloride Level 102 mmol/L (98-107) Carbon Dioxide Level 29 mmol/L (21-32) Anion Gap 7 (6-14) Blood Urea Nitrogen 10 mg/dL (8-26) Creatinine 1.2 mg/dL (0.7-1.3) Estimated GFR (Cockcroft-Gault) 89.3 BUN/Creatinine Ratio 8 (6-20) Glucose Level 86 mg/dL (70-99) Calcium Level 9.7 mg/dL (8.5-10.1) Total Bilirubin 1.1 mg/dL (0.2-1.0) Aspartate Amino Transf (AST/SGOT) 16 U/L (15-37) Alanine Aminotransferase (ALT/SGPT) 20 U/L (16-63) Alkaline Phosphatase 67 U/L (46-116) Troponin I High Sensitivity 5 ng/L (4-75) Total Protein 8.6 g/dL (6.4-8.2) Albumin 4.4 g/dL (3.4-5.0) Albumin/Globulin Ratio 1.0 (1.0-1.7) Lipase 251 U/L (73-393) Lactic Acid Level 1.4 mmol/L (0.4-2.0) Influenza Type A Antigen Negative (NEGATIVE) Influenza Type B Antigen Negative (NEGATIVE) SARS-CoV-2 Antigen (Rapid) Negative (NEGATIVE) Urine Collection Type Unknown Urine Color Yellow Urine Clarity Clear Urine pH 7.0 Urine Specific [place] 1.010 Urine Protein Negative mg/dL (NEG-TRACE) Urine Glucose (UA) Negative mg/dL (NEG) Urine Ketones (Stick) 40 mg/dL (NEG) Urine Blood Negative (NEG) Urine Nitrite Negative (NEG) Urine Bilirubin Negative (NEG) Urine Urobilinogen Dipstick 0.2 mg/dL (0.2 mg/dL) Urine Leukocyte Esterase Negative (NEG) Urine RBC 0 /HPF (0-2) Urine WBC Occ /HPF (0-4) Urine Squamous Epithelial Cells /LPF Urine Bacteria 0 /HPF (0-FEW) Urine Mucus Slight /LPF Assessment and Plan Assessmemt and Plan Problems Medical Problems: (1) Abdominal pain Status: Acute (2) Acute appendicitis Status: Acute Comment Review of Relevant I have reviewed the following items daja (where applicable) has been applied. Medications: Current Medications Medications (Trade) Dose Ordered Sig/Irais Route PRN Reason Start Time Stop Time Status Last Admin Dose Admin Sodium Chloride 1,000 ml @ 1,000 mls/hr 1X ONCE IV 06/09/21 14:00 06/09/21 14:59 DC 06/09/21 14:05 Ondansetron HCl (Zofran) 4 mg 1X ONCE IVP 06/09/21 14:00 06/09/21 14:01 DC 06/09/21 14:06 Morphine Sulfate (Morphine Sulfate) 4 mg 1X ONCE IVP 06/09/21 14:00 06/09/21 14:01 DC 06/09/21 14:07 Iohexol (Omnipaque 300 Mg/ml) 75 ml 1X ONCE IV 06/09/21 14:30 06/09/21 14:31 DC 06/09/21 14:34 Morphine Sulfate (Morphine Sulfate) 4 mg 1X ONCE IVP 06/09/21 15:15 06/09/21 15:16 DC 06/09/21 15:11 Ondansetron HCl (Zofran) 4 mg 1X ONCE IVP 06/09/21 15:15 06/09/21 15:16 DC 06/09/21 15:11 Piperacillin Sod/ Tazobactam Sod 3.375 gm/Sodium Chloride 50 ml @ 100 mls/hr Q6HRS IV 06/09/21 16:00 06/10/21 05:47 Morphine Sulfate (Morphine Sulfate) 4 mg PRN Q2HR PRN IVP PAIN 06/09/21 15:30 06/10/21 15:29 06/09/21 21:23 Sodium Chloride 1,000 ml @ 75 mls/hr 1X ONCE IV 06/09/21 15:30 06/10/21 04:49 DC 06/09/21 15:26 Morphine Sulfate (Morphine Sulfate) 1 mg PRN Q10MIN PRN IVP SEVERE PAIN 7-10 06/10/21 06:00 06/11/21 05:59 06/10/21 08:55 Ringer's Solution 1,000 ml @ 30 mls/hr Q24H IV 06/10/21 06:00 06/10/21 17:59 06/10/21 07:12 Hydromorphone HCl (Dilaudid) 0.5 mg PRN Q10MIN PRN IVP SEVERE PAIN 7-10, 2nd CHOICE 06/10/21 06:00 06/11/21 05:59 06/10/21 09:14 Prochlorperazine Edisylate (Compazine) 5 mg PACU PRN PRN IVP NAUSEA, MRX1 06/10/21 06:00 06/11/21 05:59 06/10/21 08:55 Nicotine (Nicoderm Cq 21mg) 1 patch PRN DAILY PRN TD SMOKING CESSATION 06/09/21 20:15 06/09/21 20:27 Bupivacaine HCl/ Epinephrine Bitart (Sensorcaine-Epi 0.25%-1:[id number] Mpf) 30 ml STK-MED ONCE INJ 06/10/21 07:36 06/10/21 08:03 DC 06/10/21 07:36 Justifications for Admission Other Justification SAMSON HANSEN MD June 10, 2021 09:54
--- NOTE | 2021-06-10 14:20 | NUR ---
Ambulating hallways with steady gait. Tolerated lunch without n/v. Anxious to go home tonight. Cont. monitor.
[2021-06-10] MEDS ORDERED: HYDROcodone/APAP 7.5/325MG 1 TAB TABLET PO ONE (17:00)
--- NOTE | 2021-06-10 18:37 | PDOC3 ---
Discharge Summary Visit Information Date of Admission: June 09, 2021 Date of Discharge: June 10, 2021 Final Diagnosis Problems Medical Problems: (1) Abdominal pain Status: Acute (2) Acute appendicitis Status: Acute Brief Hospital Course Allergies Allergies Coded Allergies Type Severity Reaction Last Updated Verified No Known Drug Allergies 12/27/15 No Vital Signs Vital Signs Date Time Temp Pulse Resp B/P (MAP) Pulse Ox O2 Delivery O2 Flow Rate FiO2 06/10/21 17:23 Room Air 06/10/21 15:15 98.3 60 18 109/71 (84) 97 98.3 06/10/21 08:26 10.0 Lab Results Laboratory Tests Test 06/09/21 13:28 06/09/21 14:04 06/09/21 15:30 06/09/21 17:20 White Blood Count 11.3 x10^3/uL (4.0-11.0) Red Blood Count 4.97 x10^6/uL (4.30-5.70) Hemoglobin 15.0 g/dL (13.0-17.5) Hematocrit 43.9 % (39.0-53.0) Mean Corpuscular Volume 89 fL (79-100) Mean Corpuscular Hemoglobin 30 pg (25-35) Mean Corpuscular Hemoglobin Concent 34 g/dL (31-37) Red Cell Distribution Width 13.7 % (11.5-14.5) Platelet Count 284 x10^3/uL (140-400) Neutrophils (%) (Auto) 82 % (31-73) Lymphocytes (%) (Auto) 9 % (24-48) Monocytes (%) (Auto) 8 % (0-9) Eosinophils (%) (Auto) 1 % (0-3) Basophils (%) (Auto) 1 % (0-3) Neutrophils # (Auto) 9.3 x10^3/uL (1.8-7.7) Lymphocytes # (Auto) 1.1 x10^3/uL (1.0-4.8) Monocytes # (Auto) 0.9 x10^3/uL (0.0-1.1) Eosinophils # (Auto) 0.1 x10^3/uL (0.0-0.7) Basophils # (Auto) 0.1 x10^3/uL (0.0-0.2) Sodium Level 138 mmol/L (136-145) Potassium Level 3.8 mmol/L (3.5-5.1) Chloride Level 102 mmol/L (98-107) Carbon Dioxide Level 29 mmol/L (21-32) Anion Gap 7 (6-14) Blood Urea Nitrogen 10 mg/dL (8-26) Creatinine 1.2 mg/dL (0.7-1.3) Estimated GFR (Cockcroft-Gault) 89.3 BUN/Creatinine Ratio 8 (6-20) Glucose Level 86 mg/dL (70-99) Calcium Level 9.7 mg/dL (8.5-10.1) Total Bilirubin 1.1 mg/dL (0.2-1.0) Aspartate Amino Transf (AST/SGOT) 16 U/L (15-37) Alanine Aminotransferase (ALT/SGPT) 20 U/L (16-63) Alkaline Phosphatase 67 U/L (46-116) Troponin I High Sensitivity 5 ng/L (4-75) Total Protein 8.6 g/dL (6.4-8.2) Albumin 4.4 g/dL (3.4-5.0) Albumin/Globulin Ratio 1.0 (1.0-1.7) Lipase 251 U/L (73-393) Lactic Acid Level 1.4 mmol/L (0.4-2.0) Influenza Type A Antigen Negative (NEGATIVE) Influenza Type B Antigen Negative (NEGATIVE) SARS-CoV-2 Antigen (Rapid) Negative (NEGATIVE) Urine Collection Type Unknown Urine Color Yellow Urine Clarity Clear Urine pH 7.0 Urine Specific [place] 1.010 Urine Protein Negative mg/dL (NEG-TRACE) Urine Glucose (UA) Negative mg/dL (NEG) Urine Ketones (Stick) 40 mg/dL (NEG) Urine Blood Negative (NEG) Urine Nitrite Negative (NEG) Urine Bilirubin Negative (NEG) Urine Urobilinogen Dipstick 0.2 mg/dL (0.2 mg/dL) Urine Leukocyte Esterase Negative (NEG) Urine RBC 0 /HPF (0-2) Urine WBC Occ /HPF (0-4) Urine Squamous Epithelial Cells /LPF Urine Bacteria 0 /HPF (0-FEW) Urine Mucus Slight /LPF Brief Hospital Course Mr. Kennedy is a 25 old male who presented with acute appendicitis. Consulted general surgery. He had laparoscopic appendectomy. He was cleared for general surgery to discharge on a short course of Augmentin and pain management. Discharge Information Condition at Discharge: Improved Disposition/Orders: D/C to Home Justicifation of Admission Dx: Justifications for Admission: Justification of Admission Dx: Yes JOSE JUAN ANTONY MD June 10, 2021 18:37
[2021-06-10] MEDS ORDERED: OXYC1TAB15 PO (18:40)
[2021-06-10] MEDS ORDERED: AMOX1TAB61 PO (18:40)
--- NOTE | 2021-06-10 20:20 | NUR ---
Patient discharged to ER exit accompanied by a family member. Patient to follow up with Dr. Lozada in 2 weeks. Written discharge instructions given to patient. Patient verbalized understanding of information. Alicia robertson.
[2021-06-10] MEDS ORDERED: LACTOBACILLUS RHAMNOSUS GG 1 CAPSULE. PO SCH (21:00)
== END 2021-06-10 20:20 | disposition home or self-care (01) | DRG 343 ==
LOC: ER 13:14 → 4 NORTH 15:15
PROVIDERS: ADMIT Internal Medicine; ATTEND Internal Medicine
PROC: 0DTJ4ZZ Resection of Appendix, Percutaneous Endoscopic Approach (ICD-10-PCS; principal; 2021-06-10 07:30)
DX: K35.80 Unspecified acute appendicitis (principal); Z83.3 Family history of diabetes mellitus; F17.210 Nicotine dependence, cigarettes, uncomplicated; Z79.899 Other long term (current) drug therapy
CPT/HCPCS: 36415; 74177; 80053; 81001; 83605; 83690; 84484; 85025; 87428; 93005; 96361; 96374; 96375; 96376; A4314; A4930; J0780; J1100; J1170; J1885; J2270; J2405; J2543; J2704; J2710; J3010; J3490; J7030; J7120; Q9967; 99285-25; G0378